=== PATIENT | female | born 1980 | race Caucasian/White ===

== ENCOUNTER 2016-07-11 18:22 | Emergency (ER) | payer SELFPAY ==
[~2016-07-11] VITALS: Ht 162.6 cm; Wt 73.6 kg
[~2016-07-11 18:22] MED LIST: AMO500 PO; TRAM50TA2 PO
[2016-07-11 19:07] VITALS: Ht 162.6 cm; Wt 73.6 kg
[2016-07-11] MEDS ORDERED: SOD CHLORIDE 0.9% 1,000 ML IV STA (21:47)
[2016-07-11] MEDS ORDERED: ONDANSETRON 4 MG INJ IV STA (21:47)
[2016-07-11] MEDS ORDERED: morphine 4 MG/ML VIAL IV STA (21:47)
--- NOTE | 2016-07-11 22:13 | RADRPT ---
PROCEDURE: Right upper quadrant abdominal ultrasound. CLINICAL INDICATION: Abdominal pain TECHNIQUE: Baxter scale and color doppler ultrasound images of the right upper quadrant. COMPARISON: Prior examinations dating back to 2008 are not available for comparison. FINDINGS: Pancreas: Visualized portions appear of normal echogenicity, no focal lesions. Liver: Morphology: Normal in size and contour. Echogenicity: Normal. Focal lesions: None. Main portal vein: Patent with hepatopetal flow. Biliary System: Normal appearing gallbladder wall. No gallstones seen. No intrahepatic biliary dilatation. Common bile duct measures 3.0 mm in maximal dimension. Kidneys: Right 10.1 cm in length. Right renal cortical thickness is preserved. Normal echogenicity. No hydronephrosis. No renal calculi. No focal lesions. No free fluid identified. IMPRESSION: Normal gallbladder without gallstones. RPTAT: AADD .Bryan Toure MD, Date Time Electronically viewed and signed by .Bryan Toure MD, on 07/11/2016 22:13 .B/
[2016-07-11 22:41] LABS: ADD SCAN DIFF NO
[2016-07-11 22:47] LABS: BASOPHILS % 0.4 % (0.0-2.0); EOSINOPHILS # 0.1 10^3/ul (0.0-0.5); EOSINOPHILS % 1.1 % (0.0-7.0); HEMATOCRIT 40.2 % (37.0-47.0); HEMOGLOBIN 14.2 g/dl (12.0-16.0); LYMPHOCYTES # 2.4 10^3/ul (0.8-2.9); LYMPHOCYTES % 33.9 % (15.0-51.0); MEAN CORPUSCULAR HEMOGLOBIN 31.6 pg (29.0-33.0); MEAN CORPUSCULAR HGB CONC 35.3 g/dl (32.0-37.0); MEAN CORPUSCULAR VOLUME 89.3 fl (82.0-101.0); MEAN PLATELET VOLUME 9.5 fl (7.4-10.4); MONOCYTE # 0.3 10^3/ul (0.3-0.9); MONOCYTES % 4.8 % (0.0-11.0); NEUTROPHIL # 4.2 10^3/ul (1.6-7.5); NEUTROPHILS % 59.5 % (39.0-77.0); PLATELET COUNT 303 10^3/UL (140-415); RED CELL DISTRIBUTION WIDTH 12.3 % (11.5-14.5); WHITE BLOOD COUNT 7.1 10^3/ul (4.8-10.8)
[2016-07-11 22:56] LABS: ALBUMIN 4.1 g/dl (3.3-4.9); POTASSIUM 3.9 mmol/L (3.5-5.1)
[2016-07-11 22:58] LABS: CREATININE 0.52 mg/dl (0.44-1.00)
[2016-07-11 22:59] LABS: ALBUMIN/GLOBULIN RATIO 1.07; BILIRUBIN,INDIRECT 0.3 mg/dl (0-1.1); BILIRUBIN,TOTAL 0.3 mg/dl (0.2-1.3); CALCIUM 8.9 mg/dl (8.4-10.2); TOTAL PROTEIN 7.9 g/dl (6.1-8.1)
[2016-07-11 23:02] LABS: ADD UMIC YES; URINE BILIRUBIN (Dip) NEGATIVE (NEGATIVE); URINE BLOOD (Dip) 3+ (NEGATIVE); URINE COLOR LT. YELLOW (YELLOW); URINE GLUCOSE (Dip) NEGATIVE (NEGATIVE); URINE KETONES (Dip) 15 (NEGATIVE); URINE LEUKOCYTE ESTERASE (Dip) NEGATIVE (NEGATIVE); URINE NITRITE (Dip) NEGATIVE (NEGATIVE); URINE TOTAL PROTEIN (Dip) NEGATIVE (NEGATIVE); URINE UROBILINOGEN (Dip) 0.2 E.U./dL (0.1-1.0)
[2016-07-11 23:11] LABS: TROPONIN-I 0.022 ng/ml (0.00-0.12)
[2016-07-11 23:22] LABS: BACTERIA,URINE RARE
[2016-07-11 23:23] LABS: SQUAMOUS EPITHELIAL CELL,UR FEW
--- NOTE | 2016-07-12 01:17 | RADRPT ---
PROCEDURE: CT abdomen and pelvis without contrast. CLINICAL INDICATION: Abdominal pain. TECHNIQUE: Noncontrast CT examination of the abdomen and pelvis, with axial, sagittal and coronal r eformatted images. CTDI: 10.19 mGy and DLP: 575.58 mGy-cm. COMPARISON: Ultrasound abdomen dated 07/11/2016 FINDINGS: CT abdomen: Partially visualized 2 mm nodule in the subpleural right lung base. This may represent part of a la rger nodule and recommend follow-up CT chest. Mild airspace disease at the mid right lower lobe bas e. Findings suggest pneumonia. Lung bases are otherwise clear. The heart size is normal, without pericardial thickening or effusion. The liver is normal in size and density without focal mass or intrahepatic biliary dilatation. The spleen is normal in size and homogeneous in density. The stomach is partially collapsed, but is xiomara ssly unremarkable. The pancreas as visualized is normal. The gallbladder and biliary tree are unre markable and there is no evidence for biliary dilatation. The adrenal glands are symmetric and norm al. The kidneys are symmetrically unremarkable as well. No renal calculus or obstructive uropathy o r mass lesion is seen. The appendix is unremarkable. The aorta is of normal caliber. There is no retroperitoneal lymphadenopathy. The michelle hepatis reg ion is clear. Nonspecific small bowel ileus. CT pelvis: Nonspecific small bowel ileus. The pelvic organs are normal. The pelvic sidewalls and inguinal reg ions are clear. The sigmoid colon and rectum are all unremarkable. No mass, lymphadenopathy, or fr ee fluid is seen. No acute inflammation is seen. The surrounding osseous structures are remarkable for mild degenerative spondylosis of the spine. N o osteolytic or osteoblastic lesion is detected. IMPRESSION: 1. Right lower lobe pneumonia. 2. Partially visualized 2 mm nodule in the right lung, and this may represent a partially visualize d larger nodule. Recommend CT examination of the chest for full evaluation. 3. Nonspecific mild small bowel ileus. RPTAT: UU Physician Mono Date Time Electronically viewed and signed by Physician Mono on 07/12/2016 01:16 RS/
[2016-07-12] MEDS ORDERED: AZIT250T94 PO (01:25)
[2016-07-12 01:43] VITALS: BP 126/85; PULSE 76; RESP 18; TEMP 98.2
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
== END 2016-07-12 01:56 | disposition home or self-care (01) ==
LOC: FTE 18:22
DX: J18.9 Pneumonia, unspecified organism (principal); R11.2 Nausea with vomiting, unspecified
CPT/HCPCS: 36415; 74176; 76705; 80053; 81001; 83690; 84484; 85025; 96374; 96375; 99285; J2270; J2405; J7030; 81003

== ENCOUNTER 2016-08-24 21:29 | Emergency (ER) | payer MEDICAID ==
[~2016-08-24] VITALS: Ht 160 cm; Wt 74.0 kg
[~2016-08-24 21:29] MED LIST changes: +AZIT250T94 PO
[2016-08-24 21:35] VITALS: Ht 160 cm; Wt 74.0 kg
[2016-08-24 23:18] LABS: ADD SCAN DIFF NO
[2016-08-24 23:22] LABS: BASOPHILS % 0.4 % (0.0-2.0); EOSINOPHILS # 0.2 10^3/ul (0.0-0.5); EOSINOPHILS % 2.1 % (0.0-7.0); HEMATOCRIT 42.9 % (37.0-47.0); HEMOGLOBIN 14.6 g/dl (12.0-16.0); LYMPHOCYTES # 2.3 10^3/ul (0.8-2.9); MEAN CORPUSCULAR HEMOGLOBIN 31.4 pg (29.0-33.0); MEAN CORPUSCULAR VOLUME 92.3 fl (82.0-101.0); MEAN PLATELET VOLUME 9.5 fl (7.4-10.4); MONOCYTE # 0.5 10^3/ul (0.3-0.9); MONOCYTES % 5.4 % (0.0-11.0); NEUTROPHIL # 5.3 10^3/ul (1.6-7.5); NEUTROPHILS % 63.9 % (39.0-77.0); PLATELET COUNT 299 10^3/UL (140-415); RED BLOOD COUNT 4.65 10^6/ul (4.20-5.40); RED CELL DISTRIBUTION WIDTH 12.8 % (11.5-14.5); WHITE BLOOD COUNT 8.3 10^3/ul (4.8-10.8)
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
--- NOTE | 2016-08-24 23:35 | RADRPT ---
PROCEDURE: US Pelvis. CLINICAL INDICATION: Pelvic pain. Vaginal bleeding. TECHNIQUE: Multiple sonographic images of the pelvis were obtained utilizing a transabdominal and endovaginal technique. The images were reviewed on a PACS workstation. COMPARISON: None available FINDINGS: Uterus: Normal in size, contour and echogenicity with no evidence for myometrial masses. Size is est imated at 10.4 x 7.1 x 4.4 cm. Cervix: No abnormalities of significance are seen. Endometrium: Normal in thickness; 7 mm. Right ovary / adnexa: Normal in size estimated at 3.1 x 1.8 x 1.7 cm. No evidence for masses, norm al blood flow on Doppler interrogation. Small follicle of approximately 1 cm is noted Left ovary/adnexa: Normal in size estimated at 3.2 x 2.2 x 2 cm. No evidence for solid masses, norm al blood flow on Doppler interrogation. Multiple small follicles are present ranging in size from 1 cm up to 1.6 cm. Cul-de-sac: No evidence of free fluid. RPTAT:HJJR IMPRESSION: 1. Incidental bilateral ovarian follicles the largest on the left measuring 1.6 cm. 2. Normal uterus and endometrium. Physician Genesis Date Time Electronically viewed and signed by Physician Genesis on 08/24/2016 23:34 /
[2016-08-24 23:41] LABS: ADD UMIC YES; URINE BILIRUBIN (Dip) NEGATIVE (NEGATIVE); URINE BLOOD (Dip) 2+ (NEGATIVE); URINE COLOR LT. YELLOW (YELLOW); URINE GLUCOSE (Dip) NEGATIVE (NEGATIVE); URINE KETONES (Dip) NEGATIVE (NEGATIVE); URINE LEUKOCYTE ESTERASE (Dip) NEGATIVE (NEGATIVE); URINE NITRITE (Dip) NEGATIVE (NEGATIVE); URINE TOTAL PROTEIN (Dip) TRACE (NEGATIVE); URINE UROBILINOGEN (Dip) 0.2 E.U./dL (0.1-1.0)
[2016-08-24] MEDS ORDERED: IBUP-1542 PO (23:53)
[2016-08-25 00:12] LABS: BACTERIA,URINE FEW; MUCUS,URINE FEW; SQUAMOUS EPITHELIAL CELL,UR FEW
== END 2016-08-25 00:23 | disposition home or self-care (01) ==
LOC: FTE 21:29
DX: N93.9 Abnormal uterine and vaginal bleeding, unspecified (principal); R10.2 Pelvic and perineal pain
CPT/HCPCS: 36415; 76801; 76817; 81001; 81003; 84702; 85025; 86900; 86901

== ENCOUNTER 2017-05-07 21:18 | Emergency (ER) | payer OTHER, MEDICAID ==
[~2017-05-07] VITALS: Ht 167.6 cm; Wt 74.3 kg
[~2017-05-07 21:18] MED LIST changes: -AMO500 PO; +AMOX500C2 PO; +IBUP-1542 PO
[2017-05-07 21:53] VITALS: Ht 167.6 cm; Wt 74.3 kg
[2017-05-08] MEDS ORDERED: SOD CHLORIDE 0.9% 1,000 ML IV STA (00:26)
[2017-05-08] MEDS ORDERED: ONDANSETRON 4 MG INJ IV STA ×2 (00:26→02:04)
[2017-05-08] MEDS ORDERED: morphine 4 MG/ML VIAL IV STA (00:26)
[2017-05-08 00:57] LABS: BASOPHIL # 0.1 10^3/ul (0.0-0.1); BASOPHILS % 0.5 % (0.0-2.0); EOSINOPHILS # 0.1 10^3/ul (0.0-0.5); EOSINOPHILS % 0.9 % (0.0-7.0); HEMOGLOBIN 13.9 g/dl (12.0-16.0); LYMPHOCYTES % 28.9 % (15.0-51.0); MEAN CORPUSCULAR HEMOGLOBIN 31.7 pg (29.0-33.0); MEAN CORPUSCULAR HGB CONC 35.6 g/dl (32.0-37.0); MONOCYTE # 0.5 10^3/ul (0.3-0.9); MONOCYTES % 5.1 % (0.0-11.0); NEUTROPHIL # 6.6 10^3/ul (1.6-7.5); NEUTROPHILS % 64.3 % (39.0-77.0); PLATELET COUNT 311 10^3/UL (140-415); RED BLOOD COUNT 4.38 10^6/ul (4.20-5.40); RED CELL DISTRIBUTION WIDTH 12.6 % (11.5-14.5); WHITE BLOOD COUNT 10.3 10^3/ul (4.8-10.8)
[2017-05-08 01:16] LABS: ALBUMIN 4.2 g/dl (3.3-4.9); ALBUMIN/GLOBULIN RATIO 1.23; BILIRUBIN,INDIRECT 0.5 mg/dl (0-1.1); BILIRUBIN,TOTAL 0.5 mg/dl (0.2-1.3); CALCIUM 9.3 mg/dl (8.4-10.2); CREATININE 0.57 mg/dl (0.44-1.00); POTASSIUM 3.6 mmol/L (3.5-5.1); TOTAL PROTEIN 7.6 g/dl (6.1-8.1)
[2017-05-08 01:24] LABS: ADD UMIC YES; UR ASCORBIC ACID NEGATIVE (NEGATIVE); UR BACTERIA FEW /HPF (NONE SEEN); UR BILIRUBIN (Dip) NEGATIVE (NEGATIVE); UR BLOOD (Dip) 2+ mg/dL (NEGATIVE); UR CLARITY CLEAR (CLEAR); UR COLOR YELLOW (YELLOW); UR GLUCOSE (Dip) NEGATIVE (NEGATIVE); UR KETONES (Dip) 1+ mg/dL (NEGATIVE); UR LEUKOCYTE ESTERASE (Dip) NEGATIVE Leu/ul (NEGATIVE); UR NITRITE (Dip) NEGATIVE (NEGATIVE); UR RBC 9 /HPF (0-5); UR SPECIFIC GRAVITY (Dip) 1.014 (1.003-1.030); UR SQUAMOUS EPITHELIAL CELL FEW /HPF (FEW); UR TOTAL PROTEIN (Dip) NEGATIVE (NEGATIVE); UR UROBILINOGEN (Dip) 1+ mg/dL (NEGATIVE)
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
[2017-05-08] MEDS ORDERED: FAMOTIDINE 20 MG INJ IV ONE (02:30)
--- NOTE | 2017-05-08 02:38 | RADRPT ---
PROCEDURE: US OB. CLINICAL INDICATION: . Vaginal bleeding. TECHNIQUE: Multiple sonographic images of the pelvis were obtained. Transabdominal and transvagin al views of the pelvis are available for review. The images were reviewed on a PACS workstation. COMPARISON: 08/24/2016 FINDINGS: An intrauterine probable early gestational sac at 1.9 mm is identified, corresponding to 4 weeks 5 d ays size.. No pole or cardiac activity is detected. No subchorionic hemorrhage is identifi ed. The ovaries are unremarkable with vascular flow.. There is no adnexal mass or free fluid. IMPRESSION: Intrauterine sac-like structure at 4 weeks 5 days size without pole or heart motion, likely re presents an early intrauterine too small to identify a pole. No adnexal mass or ruthy e fluid to suggest ectopic . RPTAT: HMVK .Rashad Jasso MD, Date Time Electronically viewed and signed by .Rashad Jasso MD, on 05/08/2017 02:38 .K/
--- NOTE | 2017-05-08 03:00 | RADRPT ---
PROCEDURE: ULTRASOUND LIMITED ABDOMEN CLINICAL INDICATION: 36-year-old female with abdominal pain. TECHNIQUE: Multiple sonographic of the right upper quadrant of the abdomen were obtained. The imag es were reviewed on a PACS workstation. COMPARISON: CT abdomen/pelvis July 12, 2016; ultrasound right upper quadrant July 11, 2016. FINDINGS: The pancreas is partially visualized and is otherwise without abnormal echogenicity. The liver displays normal echogenicity. The liver measures 16.0 cm in length. No evidence of intrah epatic biliary ductal dilatation is seen. The portal and hepatic veins are unremarkable. The gallbladder demonstrates no wall thickening, sludge, nor stones. No pericholecystic fluid is see n. The common bile duct measures 4.5 mm and is not dilated. The right kidney displays normal echogenicity. The right kidney measures 12.4 cm in maximal length. No caliectasis or hydronephrosis is seen. No free fluid is seen. IMPRESSION: Unremarkable right upper quadrant abdominal ultrasound. .Edd Lance MD, MD Date Time Electronically viewed and signed by .Edd Lance MD, on 05/08/2017 03:00 .M/
[2017-05-08] MEDS ORDERED: PREN-47 PO (03:18)
[2017-05-08] MEDS ORDERED: ACET500C5 PO (03:18)
[2017-05-08] MEDS ORDERED: FAMO-96 PO (03:18)
[2017-05-08 04:59] VITALS: BP 136/99; PULSE 97; RESP 20; TEMP 98.2
== END 2017-05-08 05:00 | disposition home or self-care (01) ==
LOC: FTE 21:18
DX: O26.891 Other specified pregnancy related conditions, first trimester (principal); R10.13 Epigastric pain; O20.9 Hemorrhage in early pregnancy, unspecified; R10.2 Pelvic and perineal pain; Z3A.01 Less than 8 weeks gestation of pregnancy
CPT/HCPCS: 36415; 76705; 76801; 76817; 80053; 81001; 83690; 84702; 85025; 96374; 96375; 99285; J2270; J2405; J7030

== ENCOUNTER 2018-02-15 20:10 | Inpatient (IN) | END 2018-02-17 18:30 | disposition left against medical advice (07) | DRG 832 ==

== ENCOUNTER 2018-02-20 21:20 | Inpatient (IN) | END 2018-02-24 14:21 | disposition left against medical advice (07) | DRG 833 ==

== ENCOUNTER 2018-02-27 15:00 | Inpatient (IN) | END 2018-03-08 16:23 | disposition home or self-care (01) | DRG 787 ==

== ENCOUNTER 2018-03-14 20:50 | Emergency (ER) | END 2018-03-15 01:20 | disposition home or self-care (01) ==

== ENCOUNTER 2018-03-16 13:08 | Emergency (ER) | END 2018-03-16 17:00 | disposition home or self-care (01) ==

== ENCOUNTER 2018-03-28 15:30 | Emergency (ER) | END 2018-03-28 16:19 | disposition home or self-care (01) ==

== ENCOUNTER 2018-04-01 20:20 | Emergency (ER) | END 2018-04-01 21:05 | disposition home or self-care (01) ==

== ENCOUNTER 2018-05-02 19:18 | Emergency (ER) | END 2018-05-02 22:06 | disposition home or self-care (01) ==

== ENCOUNTER 2018-05-09 02:49 | Emergency (ER) | payer MEDICAID ==
[~2018-05-09] VITALS: Ht 167.6 cm; Wt 86.1 kg
[~2018-05-09 02:49] MED LIST changes: +ACET500C5 PO; -AMOX500C2 PO; -AZIT250T94 PO; +CEPH-443 PO; -IBUP-1542 PO; +IBUP800T48 PO; +LABE200T25 PO; +MECL-77 PO; -TRAM50TA2 PO; +ZOF8 PO
[2018-05-09 03:13] VITALS: BP 146/91; PULSE 97; RESP 16; Ht 167.6 cm; Wt 86.1 kg
--- NOTE | 2018-05-09 05:25 | ERD ---
ER Documentation Chief Complaint Chief Complaint C/o knee pain, ankle swelling and back pain HPI 37-year-old female patient with a past medical history of hypertension presents to the ED complaining of back pain she has had. Reports that she works at the [employer]. States that she was recently here for right knee pain. Reports that the ultrasound, x-ray was negative for any fractures or DVT. Denies any recent injuries. Denies any fever, chills, dysuria, urgency, frequency, chronic pain, abdominal pain or range of motion. Denies any saddle anesthesia, urine or bowel incontinence. ROS All systems reviewed and are negative except as per history of present illness. Medications Home Meds Active Scripts Acetaminophen* (Tylophen*) 500 Mg Capsule, 1 CAP PO Q6H PRN for PAIN AND OR ELEVATED TEMP, #20 CAP Prov:FOX STACK 05/02/18 Ibuprofen* (Motrin*) 800 Mg Tab, 800 MG PO Q6H PRN for PAIN AND OR ELEVATED TEMP, #30 TAB Prov:FOX STACK 05/02/18 Meclizine Hcl* (Meclizine Hcl*) 25 Mg Tablet, 25 MG PO Q8H PRN for DIZZINESS, #10 TAB Prov:CHARIS SAHU MD 03/16/18 Ondansetron Hcl* (Zofran*) 8 Mg Tab, 8 MG PO Q6H PRN for NAUSEA AND OR VOMITING, #20 TAB Prov:CHARIS SAHU MD 03/16/18 Cephalexin* (Keflex*) 500 Mg Capsule, 500 MG PO BID for 7 Days, CAP Prov:CHARIS SAHU MD 03/16/18 Reported Medications Labetalol Hcl* (Labetalol Hcl*) 200 Mg Tablet, 200 MG PO TID, TAB 03/16/18 Allergies Allergies: Coded Allergies: No Known Allergy (Verified , 03/16/18) PMhx/Soc History of Surgery: Yes (c/section x1) Anesthesia Reaction: No Hx Neurological Disorder: No Hx Respiratory Disorders: No Hx Cardiac Disorders: Yes (Gestational hypertension) Hx Psychiatric Problems: Yes (DEPRESSION, ANXIETY) Hx Miscellaneous Medical Probl: Yes (Preeclampsia) Hx Alcohol Use: No Hx Substance Use: No Hx Tobacco Use: No Smoking Status: Never smoker FmHx Family History: No diabetes, No coronary disease Physical Exam Vitals Vital Signs Date Temp Pulse Resp B/P (MAP) Pulse Ox O2 O2 Flow FiO2 Time Delivery Rate 05/09/18 98.3 97 16 146/91 99 03:13 (109) Physical Exam Const: No acute distress Head: Atraumatic Eyes: Normal Conjunctiva ENT: Normal External Ears, Nose and Mouth. Neck: Full range of motion. No meningismus. Resp: Clear to auscultation bilaterally Cardio: Regular rate and rhythm, no murmurs Abd: Soft, non tender, non distended. Normal bowel sounds Skin: No petechiae or rashes Back: No midline or flank tenderness Ext: No cyanosis, or edema Neur: Awake and alert Psych: Normal Mood and Affect Results 24 hrs Laboratory Tests Test 05/09/18 03:59 POC Beta HCG, Qualitative NEGATIVE Procedures/MDM 37-year-old female patient with no significant past medical history presents to ED complaining of low back pain, chronic right knee pain. Patient is afebrile and nontoxic-appearing. Lower lumbar x-ray was ordered to further evaluate colleen ent. PROCEDURE: XR Lumbar Spine. CLINICAL INDICATION: Lower back pain TECHNIQUE: AP and lateral views of the lumbar spine were obtained. COMPARISON: CT from 07/12/2016 FINDINGS: The vertebral body heights are maintained. There is mild levoscoliosis. There is mild disc space narrowing at L5-S1. There is mild lower lumbar facet arthrosis. IMPRESSION: Mild degenerative changes at L5-S1, as described above. Findings are grossly stable since 07/12/2016 allowing for technique. Patient likely has degenerative changes of the L5 through S1. Patient is ambulating here in the ED without difficulty. Denies saddle anesthesia, numbness or tingling, urine or bowel incontinence, weakness. Low suspicion for cauda equina syndrome, cord compression, nephrolithiasis, aortic aneurysm, aortic dissection, epidural abscess, spinal hematoma, malignancy, pyelonephritis, or other emergent conditions. Diagnosis: Back pain Follow up with primary care physician in 1-2 days. Instructed patient to return to the ED sooner for any worsening symptoms. Patient's questions were answered. Patient is hemodynamically stable. Patient understood and agreed with discharge plan. Patient discharged stable. Disclaimer: Inadvertent spelling and grammatical errors are likely due to EHR/dictation software use and do not reflect on the overall quality of patient care. Also, please note that the electronic time recorded on this note does not necessarily reflect the actual time of the patient encounter. Departure Diagnosis: Primary Impression: Back pain Back pain location: low back pain Chronicity: unspecified Back pain laterality: unspecified Sciatica presence: unspecified whether sciatica present Qualified Codes: M54.5 - Low back pain Condition: Stable Patient Instructions: Back Pain (Acute Or Chronic) Referrals: [facility] YOU HAVE RECEIVED A MEDICAL SCREENING EXAM AND THE RESULTS INDICATE THAT YOU DO NOT HAVE A CONDITION THAT REQUIRES URGENT TREATMENT IN THE EMERGENCY DEPARTMENT. FURTHER EVALUATION AND TREATMENT OF YOUR CONDITION CAN WAIT UNTIL YOU ARE SEEN IN YOUR DOCTORS OFFICE WITHIN THE NEXT 1-2 DAYS. IT IS YOUR RESPONSIBILITY TO MAKE AN APPOINTMENT FOR FOLOW-UP CARE. IF YOU HAVE A PRIMARY DOCTOR --you should call your primary doctor and schedule an appointment IF YOU DO NOT HAVE A PRIMARY DOCTOR YOU CAN CALL OUR PHYSICIAN REFERRAL HOTLINE AT IF YOU CAN NOT AFFORD TO SEE A PHYSICIAN YOU CAN CHOSE FROM THE FOLLOWING [facility] [address] [facility] [address] [facility]. [facility] [address] [facility] [address] [facility] [address] [facility]. [facility] [address] [facility] [facility] YOU HAVE RECEIVED A MEDICAL SCREENING EXAM AND THE RESULTS INDICATE THAT YOU DO NOT HAVE A CONDITION THAT REQUIRES URGENT TREATMENT IN THE EMERGENCY DEPARTMENT. FURTHER EVALUATION AND TREATMENT OF YOUR CONDITION CAN WAIT UNTIL YOU ARE SEEN IN YOUR DOCTORS OFFICE WITHIN THE NEXT 1-2 DAYS. IT IS YOUR RESPONSIBILITY TO MAKE AN APPOINTMENT FOR FOLOW-UP CARE. IF YOU HAVE A PRIMARY DOCTOR --you should call your primary doctor and schedule and appointment IF YOU DO NOT HAVE A PRIMARY DOCTOR YOU CAN CALL OUR PHYSICIAN REFERRAL HOTLINE AT . IF YOU CAN NOT AFFORD TO SEE A PHYSICIAN YOU CAN CHOSE FROM THE FOLLOWING [facility] INSTITUTIONS: [facility] [address] [place] [address] [facility] [address] [place] [address] [facility] [address] [facility] [address] [place] [address] [facility] Urgent Care 7 a.m.- 11 p.m. Every Day of the Week NO APPOINTMENT OR AUTHORIZATION NEEDED SO [facility] Hours: Mon-Fri 9:00 AM - 5:00 PM Additional Instructions: Call your primary care doctor TOMORROW for an appointment during the next 2-3 days.See the doctor sooner or return here if your condition worsens before your appointment time. Hot compresses recommended for low back pain. Physical therapy recommended. MARLEN MALIK PA-C May 09, 2018 05:25
== END 2018-05-09 05:15 | disposition home or self-care (01) ==
LOC: FTE 02:49
DX: M54.5 Low back pain (principal); I10 Essential (primary) hypertension
CPT/HCPCS: 72100; 81025; Z7502

== ENCOUNTER 2018-05-18 23:32 | Emergency (ER) | payer MEDICAID, OTHER ==
[~2018-05-18] VITALS: Ht 167.6 cm; Wt 86.0 kg
[2018-05-18 23:34] VITALS: Ht 167.6 cm; Wt 86.0 kg
[2018-05-19] MEDS ORDERED: KETOROLAC 60 MG INJ IM STA (00:08)
[2018-05-19] MEDS ORDERED: DEXAMETHASONE 10 MG/ML 1 ML INJ IM ONE (00:30)
[2018-05-19] MEDS ORDERED: DIAZEPAM 5 MG TAB PO ONE (00:30)
[2018-05-19] MEDS ORDERED: MED4DP PO (00:57)
[2018-05-19] MEDS ORDERED: HYDR-4011 PO (00:57)
[2018-05-19] MEDS ORDERED: CYCL10TA7 PO (00:57)
[2018-05-19] MEDS ORDERED: NAPR-985 PO (00:57)
[2018-05-19 01:27] VITALS: BP 132/76; PULSE 98; RESP 15
--- NOTE | 2018-05-19 01:32 | ERD ---
ER Documentation Chief Complaint Chief Complaint LEFT HIP PAIN X2WKS; NO KNOWN INJ HPI 37-year-old female presenting with hip pain extending down left buttock times 2 weeks. Patient has been taking ibuprofen with no alleviation of symptoms. Describes as a very sharp stabbing pain running down the buttock into the leg. She denies any numbness or tingling and denies any recent traumatic injuries. Denies any changes to urination or bowel movement. Pain is worse with ambulation. Denies other medical problems. PE. Surgical history denies. Social history denies ROS All systems reviewed and are negative except as per history of present illness. Medications Home Meds Active Scripts Cyclobenzaprine Hcl* (Cyclobenzaprine Hcl*) 10 Mg Tablet, 10 MG PO TID, #15 TAB Prov:ISABEL OBANDO PA-C 05/19/18 Naproxen* (Naprosyn*) 500 Mg Tablet, 500 MG PO BID PRN for PAIN AND/OR INFLAMMATION, #30 TAB Prov:ISABEL OBANDO PA-C 05/19/18 Hydrocodone/Acetaminophen ([place] 5-325 Tablet) 1 Each Tablet, 1 TAB PO Q6H PRN for PAIN, #7 TAB Prov:ISABEL OBANDO PA-C 05/19/18 Methylprednisolone* (Medrol* DOSE PACK) 4 Mg/Dose-Pack Tab.ds.pk, 4 MG PO . DIRECTED, #1 PACKET Prov:ISABEL OBANDO PA-C 05/19/18 Acetaminophen* (Tylophen*) 500 Mg Capsule, 1 CAP PO Q6H PRN for PAIN AND OR ELEVATED TEMP, #20 CAP Prov:FOX STACK 05/02/18 Ibuprofen* (Motrin*) 800 Mg Tab, 800 MG PO Q6H PRN for PAIN AND OR ELEVATED TEMP, #30 TAB Prov:FOX STACK 05/02/18 Meclizine Hcl* (Meclizine Hcl*) 25 Mg Tablet, 25 MG PO Q8H PRN for DIZZINESS, #10 TAB Prov:CHARIS SAHU MD 03/16/18 Ondansetron Hcl* (Zofran*) 8 Mg Tab, 8 MG PO Q6H PRN for NAUSEA AND OR VOMITING, #20 TAB Prov:CHARIS SAHU MD 03/16/18 Cephalexin* (Keflex*) 500 Mg Capsule, 500 MG PO BID for 7 Days, CAP Prov:CHARIS SAHU MD 03/16/18 Reported Medications Labetalol Hcl* (Labetalol Hcl*) 200 Mg Tablet, 200 MG PO TID, TAB 03/16/18 Allergies Allergies: Coded Allergies: No Known Allergy (Verified , 05/19/18) PMhx/Soc History of Surgery: Yes (c/section x1) Anesthesia Reaction: No Hx Neurological Disorder: No Hx Respiratory Disorders: No Hx Cardiac Disorders: Yes (Gestational hypertension) Hx Psychiatric Problems: Yes (DEPRESSION, ANXIETY) Hx Miscellaneous Medical Probl: Yes (Preeclampsia) Hx Alcohol Use: No Hx Substance Use: No Hx Tobacco Use: No Smoking Status: Never smoker FmHx Family History: No diabetes, No coronary disease, No other Physical Exam Vitals Vital Signs Date Temp Pulse Resp B/P (MAP) Pulse Ox O2 O2 Flow FiO2 Time Delivery Rate 05/18/18 97.9 105 19 144/93 100 23:34 (110) Physical Exam GENERAL: The patient is well-appearing, well-nourished, in no acute distress CHEST: Clear to auscultation bilaterally. There are no rales, wheezes or rhon chi. HEART: Regular rate and rhythm. No murmurs, clicks, rubs or gallops. No S3 or S4. ABDOMEN:Soft, nontender and nondistended. Good bowel sounds. No rebound or guarding. No gross peritonitis. No gross organomegaly or masses. No Call sign or McBurney point tenderness. BACK: Pain down left paraspinous muscles extending down left buttock. EXTREMITIES: Equal pulses bilaterally. There is no peripheral clubbing, cyanosis or edema. No focal swelling or erythema. Full range of motion. Grossly neurovascularly intact. NEUROLOGIC: Alert and oriented. Cranial nerves II through XII intact. Motor strength in all 4 extremities with 5 out of 5 strength. Sensation grossly intact. Normal speech and gait. Babinski negative. DTR 2+ throughout. SKIN: There is no apparent rash or petechiae. The skin is warm and dry. Results 24 hrs Laboratory Tests Test 05/19/18 00:56 POC Beta HCG, Qualitative NEGATIVE Current Medications Medications Dose Sig/Domo Start Time Status Last (Trade) Ordered Route PRN Stop Time Admin Dose Reason Admin 10 mg ONCE ONCE 05/19/18 DC 05/19/18 Dexamethasone IM 00:30 05/19/18 00:58 (Decadron) 00:31 Diazepam 5 mg ONCE ONCE 05/19/18 DC 05/19/18 (Valium) PO 00:30 05/19/18 00:58 00:31 Ketorolac 60 mg ONCE STAT 05/19/18 DC 05/19/18 Tromethamine IM 00:08 05/19/18 01:04 (Toradol) 00:09 Procedures/MDM ER course: Toradol, Decadron and Valium given in ED MDM: 37-year-old female presenting with pain down the posterior leg. patient's findings consistent with back pain with sciatica. I have low suspicion for acute fracture dislocation. I have low suspicion for neuro deficit. I have low suspicion for cauda equina discitis or epidural abscess. Patient is discharged stricter precautions and told to follow-up with primary care within 1-2 days for close evaluation. Patient is discharged with supportive medications. All questions answered at discharge Departure Diagnosis: Primary Impression: Back pain with sciatica Condition: Stable Patient Instructions: Back Pain W/ Sciatica Referrals: [facility] YOU HAVE RECEIVED A MEDICAL SCREENING EXAM AND THE RESULTS INDICATE THAT YOU DO NOT HAVE A CONDITION THAT REQUIRES URGENT TREATMENT IN THE EMERGENCY DEPARTMENT. FURTHER EVALUATION AND TREATMENT OF YOUR CONDITION CAN WAIT UNTIL YOU ARE SEEN IN YOUR DOCTORS OFFICE WITHIN THE NEXT 1-2 DAYS. IT IS YOUR RESPONSIBILITY TO MAKE AN APPOINTMENT FOR FOLOW-UP CARE. IF YOU HAVE A PRIMARY DOCTOR --you should call your primary doctor and schedule an appointment IF YOU DO NOT HAVE A PRIMARY DOCTOR YOU CAN CALL OUR PHYSICIAN REFERRAL HOTLINE AT IF YOU CAN NOT AFFORD TO SEE A PHYSICIAN YOU CAN CHOSE FROM THE FOLLOWING [facility] [id number] [facility]. [facility] [address] [facility]. [facility] [address] [facility] [address] [facility]. [facility] [address] [facility]. [facility]. [address] Additional Instructions: FOLLOW UP WITH YOUR PRIMARY CARE PHYSICIAN TOMORROW.Return to this facility if you are not improving as expected. ISABEL OBANDO PA-C May 19, 2018 01:32
== END 2018-05-19 01:27 | disposition home or self-care (01) ==
LOC: FTE 23:32
DX: M54.42 Lumbago with sciatica, left side (principal)
CPT/HCPCS: 81025; 96372; J1100; J1885; Z7502; Z7610

== ENCOUNTER 2018-05-24 17:29 | Emergency (ER) | payer SELFPAY ==
[~2018-05-24] VITALS: Wt 84.3 kg
[~2018-05-24 17:29] MED LIST changes: +CYCL10TA7 PO; +HYDR-4011 PO; +MED4DP PO; +NAPR-985 PO
[2018-05-24 17:31] VITALS: BP 135/78; PULSE 99; RESP 18
== END 2018-05-24 19:30 | disposition left against medical advice (07) ==
LOC: FTE 17:29
DX: Z53.21 Procedure and treatment not carried out due to patient leaving prior to being seen by health care provider (principal)

== ENCOUNTER 2018-10-09 14:47 | Emergency (ER) | payer OTHER ==
[~2018-10-09] VITALS: Ht 165.1 cm; Wt 85.0 kg
[2018-10-09 14:48] VITALS: Ht 165.1 cm; Wt 85.0 kg
[2018-10-09] MEDS ORDERED: IBUPROFEN 800 MG TAB PO ONE (16:30)
[2018-10-09] MEDS ORDERED: IBUP-1542 PO (16:53)
--- NOTE | 2018-10-09 16:54 | ERD ---
ER Documentation Chief Complaint Chief Complaint THROBBING LIKE CHEST PAIN RADIATING TO THE BACK & SOB SINCE YESTERDAY HPI Patient is a 38-year-old female with history of pneumonia presents with chest pain. She said that the symptoms started yesterday and have been constant. She feels heavy pain. She had a cough that has been severe which started a couple of days ago. She denies fevers. She has had no treatment as of yet. Upon review of old medical record the patient has multiple visits to the ER for various complaints. She does not currently have a primary doctor. ROS All systems reviewed and are negative except as per history of present illness. Medications Home Meds Active Scripts Ibuprofen* (Motrin*) 600 Mg Tab, 600 MG PO Q6H PRN for PAIN AND OR ELEVATED TEMP, #30 TAB Prov:KIANA HARRY MD 10/09/18 Discontinued Reported Medications Labetalol Hcl* (Labetalol Hcl*) 200 Mg Tablet, 200 MG PO TID, TAB 03/16/18 Discontinued Scripts Cyclobenzaprine Hcl* (Cyclobenzaprine Hcl*) 10 Mg Tablet, 10 MG PO TID, #15 TAB Prov:ISABEL OBANDO PA-C 05/19/18 Naproxen* (Naprosyn*) 500 Mg Tablet, 500 MG PO BID PRN for PAIN AND/OR INFLAMMATION, #30 TAB Prov:ISABEL OBANDO PA-C 05/19/18 Hydrocodone/Acetaminophen ([place] 5-325 Tablet) 1 Each Tablet, 1 TAB PO Q6H PRN for PAIN, #7 TAB Prov:ISABEL OBANDO PA-C 05/19/18 Methylprednisolone* (Medrol* DOSE PACK) 4 Mg/Dose-Pack Tab.ds.pk, 4 MG PO . DIRECTED, #1 PACKET Prov:ISABEL OBANDO PA-C 05/19/18 Acetaminophen* (Tylophen*) 500 Mg Capsule, 1 CAP PO Q6H PRN for PAIN AND OR ELEVATED TEMP, #20 CAP Prov:PASILAFOX RIVERA F 05/02/18 Ibuprofen* (Motrin*) 800 Mg Tab, 800 MG PO Q6H PRN for PAIN AND OR ELEVATED TEMP, #30 TAB Prov:FOX STACK F 05/02/18 Meclizine Hcl* (Meclizine Hcl*) 25 Mg Tablet, 25 MG PO Q8H PRN for DIZZINESS, #10 TAB Prov:CHARIS SAHU MD 03/16/18 Ondansetron Hcl* (Zofran*) 8 Mg Tab, 8 MG PO Q6H PRN for NAUSEA AND OR VOMITING, #20 TAB Prov:CHARIS SAHU MD 03/16/18 Cephalexin* (Keflex*) 500 Mg Capsule, 500 MG PO BID for 7 Days, CAP Prov:CHARIS SAHU MD 03/16/18 Allergies Allergies: Coded Allergies: No Known Allergy (Verified , 10/09/18) PMhx/Soc History of Surgery: Yes (c/section x1) Anesthesia Reaction: No Hx Neurological Disorder: No Hx Respiratory Disorders: No Hx Cardiac Disorders: Yes (Gestational hypertension) Hx Psychiatric Problems: Yes (DEPRESSION, ANXIETY) Hx Miscellaneous Medical Probl: Yes (Preeclampsia) Hx Alcohol Use: No Hx Substance Use: No Hx Tobacco Use: No FmHx Family History: No coronary disease Physical Exam Vitals Vital Signs Date Temp Pulse Resp B/P (MAP) Pulse Ox O2 O2 Flow FiO2 Time Delivery Rate 10/09/18 98.3 84 20 132/74 99 Room Air 17:44 (93) 10/09/18 97.6 106 22 119/80 100 14:48 (93) Physical Exam Const: No acute distress Head: Atraumatic Eyes: Normal Conjunctiva ENT: Normal External Ears, Nose and Mouth. Neck: Full range of motion. No meningismus. Resp: Clear to auscultation bilaterally Cardio: Regular rate and rhythm, no murmurs Abd: Soft, non tender, non distended. Normal bowel sounds Skin: No petechiae or rashes Back: No midline or flank tenderness Ext: No cyanosis, or edema Neur: Awake and alert Psych: Normal Mood and Affect Results 24 hrs Current Medications Medications Dose Sig/Domo Start Time Status Last (Trade) Ordered Route PRN Stop Time Admin Dose Reason Admin Ibuprofen 800 mg ONCE ONCE 10/09/18 DC 10/09/18 (Motrin) PO 16:30 16:59 10/09/18 16:31 Procedures/MDM EKG read by me: Rate/Rhythm: Regular rate and rhythm at a rate of 93 Intervals: Normal Impression: No evidence of ischemia or arrhythmia Chest x-ray negative per radiology. Smoking Cessation Therapy: Pt. was lectured for greater than 3 minutes on the health risks of continued smoking and the benefits of cessation. Patient is a 38-year-old female with history of pneumonia who presents with cough and chest pain. EKG shows no signs of ischemia. Chest x-ray was negative for pneumonia or pneumothorax. At this point I doubt acute coronary syndrome, pneumonia, pneumothorax, pulmonary embolism, or aortic dissection. The patient will be discharged but will need to follow-up closely with a local clinics within 24 to 48 hours. The patient can return for any worsening symptoms. Departure Diagnosis: Primary Impression: Chest pain Chest pain type: unspecified Qualified Codes: R07.9 - Chest pain, unspecified Condition: Fair Patient Instructions: Chest Pain, Uncertain Cause Additional Instructions: Call your primary care doctor TOMORROW for an appointment during the next 1-2 days.See the doctor sooner or return here if your condition worsens before your appointment time. KIANA HARRY MD October 09, 2018 16:54
[2018-10-09 17:44] VITALS: BP 132/74; PULSE 84; RESP 20
== END 2018-10-09 17:45 | disposition home or self-care (01) ==
LOC: E/R 14:47
DX: R07.9 Chest pain, unspecified (principal)
CPT/HCPCS: 71045; 93005; Z7610

== ENCOUNTER 2018-10-28 12:44 | Emergency (ER) | payer OTHER ==
[~2018-10-28] VITALS: Ht 162.6 cm; Wt 86.9 kg
[~2018-10-28 12:44] MED LIST changes: -ACET500C5 PO; -CEPH-443 PO; -CYCL10TA7 PO; -HYDR-4011 PO; +IBUP-1542 PO; -IBUP800T48 PO; -LABE200T25 PO; -MECL-77 PO; -MED4DP PO; -NAPR-985 PO; -ZOF8 PO
[2018-10-28 12:59] VITALS: BP 123/74; PULSE 94; RESP 18; Ht 162.6 cm; Wt 86.9 kg
--- NOTE | 2018-10-28 13:53 | ERD ---
ER Documentation Chief Complaint Chief Complaint left buttocks pain radiating down left leg x1 day, epidural 8mths ago HPI 38-year-old female with history of depression and chronic back pain, presenting with hip pain extending down left buttock x 2 weeks. Patient has been taking ibuprofen with no alleviation of symptoms. Describes as a very sharp stabbing pain running down the buttock into the leg. She denies any numbness or tingling and denies any recent traumatic injuries. Denies any changes to urination or bowel movement. Pain is worse with ambulation. Denies other medical problems. PE. Surgical history denies. Social history denies ROS All systems reviewed and are negative except as per history of present illness. Medications Home Meds Active Scripts Baclofen* (Baclofen*) 10 Mg Tablet, 10 MG PO QHS for 5 Days, #5 TAB Prov:LUIGI LYLES MD 10/28/18 Ibuprofen* (Motrin*) 400 Mg Tab, 400 MG PO Q6H PRN for PAIN AND OR ELEVATED TEMP, #30 TAB Prov:LUIGI LYLES MD 10/28/18 Acetaminophen* (Tylenol*) 325 Mg Tablet, 2 TAB PO Q6 PRN for PAIN AND OR ELEVATED TEMP, #20 TAB Prov:LUIGI LYLES MD 10/28/18 Ibuprofen* (Motrin*) 600 Mg Tab, 600 MG PO Q6H PRN for PAIN AND OR ELEVATED TEMP, #30 TAB Prov:KIANA HARRY MD 10/09/18 Allergies Allergies: Coded Allergies: No Known Allergy (Verified , 10/09/18) PMhx/Soc History of Surgery: Yes (c/section x1) Anesthesia Reaction: No Hx Neurological Disorder: No Hx Respiratory Disorders: No Hx Cardiac Disorders: Yes (Gestational hypertension) Hx Psychiatric Problems: Yes (DEPRESSION, ANXIETY) Hx Miscellaneous Medical Probl: Yes (Preeclampsia) Hx Alcohol Use: No Hx Substance Use: No Hx Tobacco Use: Yes Smoking Status: Current every day smoker FmHx Family History: No diabetes, No coronary disease Physical Exam Vitals Vital Signs Date Temp Pulse Resp B/P (MAP) Pulse Ox O2 O2 Flow FiO2 Time Delivery Rate 10/28/18 98.5 94 18 123/74 98 12:59 (90) Physical Exam Patient is in no acute distress, vital signs stable. Alert and fully oriented. EYES: PERRLA, EOMI, Sclera and conjunctiva appear normal. EARS: Canals clear, tympanic membranes WNL THROAT: Normal oropharynx. NECK: Supple, No lymphadenopathy. Full ROM without pain or tenderness. HEART: RRR, no rubs, murmurs, clicks or gallops. LUNGS: Clear to auscultation. ABDOMEN: Soft, non-tender without masses or hepatosplenomegaly. EXTREMITIES: No edema bilaterally. BACK: Normal inspection, no bruises, no rashes, no deformity, decreased range of motion for lateral rotation and flexion. No vertebral tenderness, bilateral lower muscle spasm. NEURO: Cranial nerves grossly intact, no motor or sensory deficit Results 24 hrs Laboratory Tests Test 10/28/18 14:16 10/28/18 14:17 Bedside Urine pH (LAB) 5.5 Bedside Urine Protein (LAB) 1+ Bedside Urine Glucose (UA) Negative Bedside Urine Ketones (LAB) Negative Bedside Urine Blood 2+ Bedside Urine Nitrite (LAB) Negative Bedside Urine Leukocyte Esterase (L Negative POC Beta HCG, Qualitative NEGATIVE Current Medications Medications Dose Sig/Domo Start Time Status Last (Trade) Ordered Route PRN Stop Time Admin Dose Reason Admin Ketorolac 15 mg ONCE STAT 10/28/18 DC 10/28/18 Tromethamine IM 13:59 14:25 (Toradol) 10/28/18 14:01 6 mg ONCE ONCE 10/28/18 DC 10/28/18 Dexamethasone IM 14:00 14:24 (Decadron) 10/28/18 14:01 Procedures/MDM At the time of discharge, patient nontoxic, ambulating, vital signs stable, no gross neurologic deficit. differential diagnosis include but not limited to: lumbar sprain/strain, sciatica, herniated disk, UTI less likely pyelo, kidney stone. Neurovascular exam grossly intact. no clinical findings suggestive of acute infectious process, no acute deformity, no edema, no rashes. Physical examination and clinical presentation consistent most likely with acute lumbar sprain. During the ED course the patient received treatment with Toradol IM presenting overall improvement of the symptoms. Results and clinical impression discussed with the patient who agrees with management. The patient is stable to be treated outpatient and will be discharged home with recommendations and close monitoring The patient was informed that the evaluation in the emergency department has been done to rule out an acute emergency, therefore, chronic conditions like malignancy or autoimmune diseases have not been evaluated; therefore, the patient was instructed to follow up with the primary care provider in the next 48h. If symptoms persist, worsen or new symptoms develop, then patient should return to the ED immediately. Instructions explained and given to patient with acknowledgment and demonstrated understanding. Disclaimer: Inadvertent spelling and grammatical errors are likely due to EHR/dictation software use and do not reflect on the overall quality of patient care. Also, please note that the electronic time recorded on this note does not necessarily reflect the actual time of the patient encounter. Departure Diagnosis: Primary Impression: Low back sprain Condition: Stable Additional Instructions: Thank you very much for allowing us to participate in your care. Your health and safety is our top priority at [facility]. The evaluation in the emergency department has been done to rule out an acute emergency. Chronic, [id number] conditions may have not been evaluated; therefore, you need to follow up with a primary care provider in the next 48h. If symptoms persist, worsen or new symptoms develop, then patient should return to the ED immediately. Call your primary care doctor TOMORROW for an appointment during the next 2-4 days and bring all the information provided. Have prescriptions filled and follow precisely the directions on the label. If the symptoms get worse and your provider is unavailable, return to the Emergency Department immediately. LUIGI LYLES MD Oct 28, 2018 13:53
[2018-10-28] MEDS ORDERED: KETOROLAC 15 MG INJ IM STA (13:59)
[2018-10-28] MEDS ORDERED: DEXAMETHASONE 10 MG/ML 1 ML INJ IM ONE (14:00)
[2018-10-28] MEDS ORDERED: BACL10TA PO (14:17)
[2018-10-28] MEDS ORDERED: IBUP-1561 PO (14:17)
[2018-10-28] MEDS ORDERED: ACET325T33 PO (14:17)
== END 2018-10-28 15:32 | disposition home or self-care (01) ==
LOC: FTE 12:44
DX: S39.012A Strain of muscle, fascia and tendon of lower back, initial encounter (principal); F17.210 Nicotine dependence, cigarettes, uncomplicated; X58.XXXA Exposure to other specified factors, initial encounter; Y92.9 Unspecified place or not applicable
CPT/HCPCS: 81003; 81025; 96372; J1100; J1885; Z7502